=== PATIENT | male | born 1960 | race Caucasian/White ===

== ENCOUNTER 2020-03-27 16:10 | Emergency (ER) | payer OTHER ==
[~2020-03-27] VITALS: Ht 193 cm; Wt 85.6 kg
[~2020-03-27 16:10] MED LIST: AMLO-150 PO; AMLO10TA8 PO; IBUP-1902 PO
[2020-03-27 16:23] VITALS: BP 157/91
--- NOTE | 2020-03-27 17:05 | NUR ---
Pt here for upper right chest near calvicle wound repacking. Packing was very purulent and about 30in-40 inches removed. Pt reports he noted more pus coming out. This rn repacked the wound with about 30inches 1/2 inch gauze. tunneling aroung 6-8 oclock and very minimal. Wound redness traced and marked. Pt will see md on .
--- NOTE | 2020-03-27 17:09 | NUR ---
Patient/Caregiver given discharge instructions and they have confirmed that they understand the instructions. Patient ambulatory with steady gait.
== END 2020-03-27 17:14 | disposition home or self-care (01) ==
LOC: ED 17:05
DX: L03.313 Cellulitis of chest wall (principal); F17.200 Nicotine dependence, unspecified, uncomplicated
CPT/HCPCS: 99281